=== PATIENT | female | born 1985 | race Caucasian/White ===

== ENCOUNTER 2017-09-17 07:16 | Day surgery (SDC) | payer BC ==
[~2017-09-17] VITALS: Ht 160 cm; Wt 104.3 kg
[2017-09-17] MEDS ORDERED: CEFAZOLIN SOD 1 GM/ ISO 50 ML PREMIX IV ONE (08:30)
[2017-09-17] MEDS ORDERED: ONDANSETRON HCL 4 MG/2 ML VIAL IVP PRN (09:00)
[2017-09-17] MEDS ORDERED: HYDROcodone/ACETAMIN 5-325 MG TAB (NORCO/ VICODIN) PO PRN (09:00)
[2017-09-17] MEDS ORDERED: OXYCODONE/ACETAMINOPHEN 5-325 TABLET PO PRN ×2 (09:00)
[2017-09-17] MEDS ORDERED: LR 1,000 ML IV SCH (09:02)
[2017-09-17] MEDS ORDERED: MEPERIDINE HCL/PF 25 MG/ML DISP.SYRIN IVP PRN (09:15)
[2017-09-17] MEDS ORDERED: HYDROmorphone 1 MG INJ. 1 MG/ML AMPUL IVP PRN (09:15)
[2017-09-17] MEDS ORDERED: HYDROmorphone 2 MG/ML VIAL IVP PRN ×2 (09:15)
[2017-09-17 12:26] VITALS: BP_SYST 117
== END 2017-09-17 11:55 | disposition home or self-care (01) ==
LOC: SDS 07:16
PROVIDERS: ATTEND Specialist
DX: N84.0 Polyp of corpus uteri (principal); E66.9 Obesity, unspecified
CPT/HCPCS: 58558; 88305; J0690